=== PATIENT | male | born 1955 | race Caucasian/White ===

== ENCOUNTER 2018-07-15 09:24 | Day surgery (SDC) | payer OTHER, MEDICARE ==
[~2018-07-15 09:24] MED LIST: ACETAMINOPHEN 1,000 MG/100 ML BTL IV ONE
[2018-07-15] MEDS ORDERED: ALBUTEROL SULFATE (0.083%) 2.5 MG/3 ML NEB INH ONE ×2 (09:25→10:23)
[2018-07-15] MEDS ORDERED: SEVOFLURANE 250 ML INH ONE (09:25)
[2018-07-15] MEDS ORDERED: FENTANYL PF 100MCG/2ML VIAL IV ONE (09:25)
[2018-07-15] MEDS ORDERED: PROPOFOL 10 MG/ML VIAL IV ONE (09:25)
[2018-07-15] MEDS ORDERED: MIDAZOLAM HCL 2MG/2ML VIAL IV ONE (09:25)
[2018-07-15] MEDS ORDERED: ONDANSETRON 4 MG ODT TABLET SL ONE (09:25)
--- NOTE | 2018-07-16 08:41 | Operative Note ---
DATE OF SURGERY: 07/15/2018 Surgeon: tAif Munoz DO PREOPERATIVE DIAGNOSES: 1. Dupuytren's contracture of the right palm. 2. Dupuytren's contracture of the right little finger. OPERATION: Fasciotomy of the right palm and right little finger using 3.5 loop magnification. DESCRIPTION OF PROCEDURE: This 63-year-old male was taken to the operating room and placed in the supine position on the operating room table where general anesthesia was induced. The right upper extremity was elevated. It was prepped with Hibiclens and draped in the usual sterile fashion. It was exsanguinated and the tourniquet inflated to 250 mmHg. The patient had significant contracture of the right little finger and a zigzag type incision was carried out from approximately the level of the web space of the thumb which is where the cord began and extended this down across the metacarpophalangeal and PIP joint to the flexor crease of the DIP joint. The cord was easily identified and then carefully protecting the neurovascular structures, this was dissected free from the subcutaneous tissue, and the wound was copiously irrigated with lactated Ringer's solution. Hemostasis was obtained with the electrocautery. We were able to get the metacarpophalangeal and the PIP joint completely straight. Once this had been accomplished and the wound closed with 3-0 Vicryl, a plaster splint was applied with the metacarpophalangeal and the PIP joint in extension. The splint extended from the tips of the ring and little finger to the distal third of the forearm. The patient was then awakened and taken to the recovery room in satisfactory condition. GROSS PATHOLOGY: This patient demonstrated extensive contracture with jermaine cord formation in the palm extending across the metacarpophalangeal causing severe contracture of that joint. Once we were able to open this up, marked improvement in the fact that we got the metacarpophalangeal joint and the PIP joint fully straight. The hemostasis was obtained with the electrocautery during the course of the procedure. CC: NEAL JACKMAN MD, FACP [facility]
== END 2018-07-15 12:50 | disposition home or self-care (01) ==
LOC: SUR 09:24
PROVIDERS: ATTEND Orthopaedic Surgery
DX: M72.0 Palmar fascial fibromatosis [Dupuytren] (principal); I10 Essential (primary) hypertension; J44.9 Chronic obstructive pulmonary disease, unspecified; E11.9 Type 2 diabetes mellitus without complications; Z79.4 Long term (current) use of insulin; E78.00 Pure hypercholesterolemia, unspecified; G62.9 Polyneuropathy, unspecified; F17.210 Nicotine dependence, cigarettes, uncomplicated
CPT/HCPCS: 26045; 01810; 36416; 82948; 94640; J3010; J7613

== ENCOUNTER 2018-09-04 15:20 | Emergency (ER) | payer OTHER, MEDICARE ==
--- NOTE | 2018-09-04 16:13 | Emergency Department Record ---
History of Present Illness - General Chief Complaint: Chest Pain Stated Complaint: L CHEST,SIDE TO BACK PAIN Time Seen by Provider: 09/04/18 15:26 Source: Patient Mode of Arrival: Ambulatory Limitations: No limitations - History of Present Illness Initial Comments: pt states he is having ap in his luq that wraps around to his flank for 2 wks. he states it initially was briefly in the chest and then moved down to the abdomen. he states it feels like he has a ball in his stomach. the pain is constant but waxes and wanes in intensity Onset/Timin -: Days(s) Pain Location: Other Severity scale (1-10): 8 Quality: Sharp, Other Consistency: Intermittent Improves With: Nothing Worsens With: Exertion, Other - Related Data Home Medications Medication Instructions Recorded Confirmed Last Taken Fluticasone Propionate [Flovent 2 puff INH BID 09/04/18 09/04/18 09/04/18 Hfa] Pregabalin [Lyrica] 300 mg PO BID 09/04/18 09/04/18 09/04/18 Varenicline Tartrate [Chantix] 1 tab PO ASDIR 09/04/18 09/04/18 09/04/18 Allergies Allergy/AdvReac Type Severity Reaction Status Date / Time No Known Drug Intolerances Allergy PT UNSURE Verified 09/04/18 15:27 OF REACTION Travel Screening - Travel/Exposure Within Last 30 Days Have you traveled within the last 30 days?: No - Travel/Exposure Within Last Year Have you traveled outside the [place] in the last year?: No - Additonal Travel Details Have you been exposed to anyone with a communicable illness?: No - Travel Symptoms Symptom Screening: None Review of Systems Reviewed: No additional complaints except as noted below Constitutional: Reports: As per HPI. Denies: Chills, Fever, Malaise, Night sweats, Weakness, Weight change Eyes: Reports: As per HPI. Denies: Eye discharge, Eye pain, Photophobia, Vision change ENT: Reports: As per HPI. Denies: Congestion, Dental pain, Ear pain, Epistaxis, Hearing loss, Throat pain Respiratory: Reports: As per HPI. Denies: Cough, Dyspnea, Hemoptysis, Stridor, Wheezes Cardiovascular: Reports: As per HPI. Denies: Arrhythmia, Chest pain, Dyspnea on exertion, Edema, Murmurs, Orthopnea, Palpitations, Paroxysmal nocturnal dyspnea, Rheumatic Fever, Syncope Endocrine: Reports: As per HPI. Denies: Fatigue, Heat or cold intolerance, Polydipsia, Polyuria Gastrointestinal: Reports: As per HPI, Abdominal pain. Denies: Constipation, Diarrhea, Hematemesis, Hematochezia, Melena, Nausea, Vomiting Genitourinary: Reports: As per HPI. Denies: Dysuria, Frequency, Hematuria, Incontinence, Retention, Testicular pain, Testicular mass, Urgency Musculoskeletal: Reports: As per HPI. Denies: Arthralgia, Back pain, Gout, Join t swelling, Myalgia, Neck pain Skin: Reports: As per HPI. Denies: Bruising, Change in color, Change in hair/nails, Lesions, Pruritus, Rash Neurological: Reports: As per HPI. Denies: Abnormal gait, Confusion, Headache, Numbness, Paresthesias, Seizure, Tingling, Tremors, Vertigo, Weakness Psychiatric: Reports: As per HPI. Denies: Anxiety, Auditory hallucinations, Depression, Homicidal thoughts, Suicidal thoughts, Visual hallucinations Hematological/Lymphatic: Reports: As per HPI. Denies: Anemia, Blood Clots, Easy bleeding, Easy bruising, Swollen glands Past Medical History - SOCIAL HISTORY Smoking Status: Current every day smoker Alcohol Use: None Drug Use: None - RESPIRATORY Hx Respiratory Disorders: Yes Hx Bronchitis: Yes (NOTHING RECENT) Hx COPD: Yes (FAIR CONTROL WITH INHALER) Hx Dyspnea: Yes Comment:: PT HAS CHRONIC COUGH - CARDIOVASCULAR Hx Cardio Disorders: Yes Hx Hypertension: Yes (ON MEDS WITH GOOD CONTROL) - NEURO Hx Neuro Disorders: Yes Hx Neuropathy: Yes (BILAT FEET AND HANDS) - GI Hx GI Disorders: No - Hx Genitourinary Disorders: No - ENDOCRINE Hx Endocrine Disorders: Yes Hx Diabetes: Yes (DX'D MANY YEARS AGO) - MUSCULOSKELETAL Hx Musculoskeletal Disorders: Yes - PSYCH Hx Psych Problems: No - HEMATOLOGY/ONCOLOGY Hx Hematology/Oncology Disorders: No Family Medical History Any Significant Family History?: Yes Hx Diabetes: Mother Physical Exam - General General Appearance: Alert, Oriented x3, Cooperative, Mild distress - Head Head exam: Normal inspection - Eye Eye exam: Normal appearance, PERRL, EOMI Pupils: Normal accommodation - ENT ENT exam: Normal exam, Mucous membranes moist, Normal external ear exam, Normal orophraynx Ear exam: Normal external inspection. negative: External canal tenderness Nasal Exam: Normal inspection. negative: Discharge, Sinus tenderness Mouth exam: Normal external inspection, Tongue normal Teeth exam: Normal inspection. negative: Dental caries Throat exam: Normal inspection. negative: Tonsillar erythema, Tonsillar exudate - Neck Neck exam: Normal inspection, Full ROM. negative: Tenderness - Respiratory Respiratory exam: Normal lung sounds bilaterally. negative: Respiratory distress - Cardiovascular Cardiovascular Exam: Regular rate, Normal rhythm, Normal heart sounds - GI/Abdominal GI/Abdominal exam: Soft, Normal bowel sounds. negative: Tenderness - Rectal Rectal exam: Deferred - exam: Deferred - Extremities Extremities exam: Normal inspection, Full ROM, Normal capillary refill. negative: Tenderness - Back Back exam: Reports: Normal inspection, Full ROM. Denies: Muscle spasm, Rash noted, Tenderness - Neurological Neurological exam: Alert, CN II-XII intact, Normal gait, Oriented X3 - Psychiatric Psychiatric exam: Normal affect, Normal mood - Skin Skin exam: Dry, Intact, Normal color, Warm Course Vital Signs 09/04/18 15:41 Temperature 97.9 F Pulse Rate 81 Respiratory 20 Rate Blood Pressure 132/84 Pulse Ox 98 - Reevaluation(s) Reevaluation #1: 09/04/18 18:56 pt is feeling better. pt has never had a colonoscopy Medical Decision Making - Lab Data Result diagrams: 09/04/18 15:55 09/04/18 15:55 Disposition Disposition: Discharge Clinical Impression: Abdominal pain Qualifiers: Abdominal location: left upper quadrant Qualified Code(s): R10.12 - Left upper quadrant pain Disposition: Home, Self-Care Condition: (1) Good Instructions: Abdominal Pain (ED) Additional Instructions: follow up with dr tee and with GI doctor this week. return sooner if worse. Referrals: FLORENCE CHATTERJEE [DOCTOR OF OSTEOPATH] - [facility] [Provider Group] Forms: Patient Portal Access Quality - Quality Measures Quality Measures: N/A - Blood Pressure Screening Does Patient Have Any of the Following: No Blood Pressure Classification: Pre-Hypertensive BP Reading Systolic Measurement: 132 Diastolic Measurement: 84 Screening for High Blood Pressure: < Pre-Hypertensive BP, F/U Documented > [[id number]] Pre-Hypertensive Follow-up Interventions: Follow-up with rescreen every year.
[2018-09-04 16:19] LABS: ABSOLUTE NEUTROPHIL COUNT 4.68; HEMATOCRIT 43.8 % (42.0-52.0); HEMOGLOBIN 14.5 gm/dl (14.0-18.0); MEAN CORPUSCULAR HEMOGLOBIN 31.1 pg (27-33); MEAN CORPUSCULAR HGB CONC 33.1 g/dl (32-36); MEAN PLATELET VOLUME 10.1 fl (7.4-10.4); PLATELET COUNT 284 K/uL (130-400); RED BLOOD COUNT 4.66 M/uL (4.40-5.70); RED CELL DISTRIBUTION WIDTH 13.7 % (11.5-14.5); WHITE BLOOD COUNT W/O DIFF 9.2 K/uL (4.2-12.2)
[2018-09-04 16:35] LABS: ALBUMIN 4.5 g/dL (4.0-5.0); CREATININE 1.3 mg/dL (0.7-1.2)
[2018-09-04 16:35] LABS: LACTIC ACID 3.8 mmol/L (0.5-2.2)
[2018-09-04 16:36] LABS: ALB/GLOB RATIO 1.5 (1.1-1.8); BILIRUBIN,TOTAL 0.5 mg/dL (0.2-1.0); TOTAL PROTEIN 7.6 g/dL (6.6-8.7)
[2018-09-04 16:40] LABS: NTpro B-NATRIURETIC PEPTIDE 98.55 pg/mL (<125)
[2018-09-04 18:35] LABS: URINE APPEARANCE CLEAR; URINE BILIRUBIN NEGATIVE (NEGATIVE); URINE BLOOD TRACE-I (NEGATIVE); URINE COLOR YELLOW; URINE GLUCOSE (UA) NEGATIVE (NEGATIVE); URINE KETONE NEGATIVE (NEGATIVE); URINE LEUKOCYTE ESTERASE NEGATIVE (NEGATIVE); URINE NITRITE NEGATIVE (NEGATIVE); URINE PROTEIN NEGATIVE (NEGATIVE); URINE UROBILINOGEN 0.2 E.U./dL (0.20 - 1.00)
[2018-09-04 18:44] LABS: URINE EPITHELIAL CELLS 0 - 2 (FEW); URINE RBC 0 - 2 (NONE SEEN); URINE SPERM FEW; URINE WBC 0 - 2 (0-2/hpf)
--- NOTE | 2018-09-05 13:28 | CT SCAN REPORT ---
DATE: 09/04/2018. EXAM: CT OF THE ABDOMEN AND PELVIS WITH CONTRAST. COMPARISON: None. HISTORY: LEFT-SIDED ABDOMINAL PAIN. TECHNIQUE: Sequential axial images were obtained from the diaphragms through the ischiorectal fossa after intravenous and oral administration of 100 mL of Omnipaque 300 contrast material. Sagittal and coronal reformatted images were performed. FINDINGS: The visualized lung bases are clear. The liver appears homogeneous. No gallstones or ductal dilation. The pancreas and spleen appear normal. The adrenal glands and kidneys appear normal. The small bowel appears normal. The appendix is visualized and appears normal. The colon appears normal. The urinary bladder appears normal. The osseus structures are normal. IMPRESSION: NO ACUTE ABDOMINAL OR PELVIC DISEASE PROCESS. Job Number: [id number] [facility]
== END 2018-09-04 19:06 | disposition home or self-care (01) ==
LOC: ER 15:20
DX: R10.12 Left upper quadrant pain (principal); R07.89 Other chest pain; J44.9 Chronic obstructive pulmonary disease, unspecified; E11.9 Type 2 diabetes mellitus without complications; I10 Essential (primary) hypertension; F17.210 Nicotine dependence, cigarettes, uncomplicated
CPT/HCPCS: 99284 ×2; 83605; 83690; 80053; 81001; 84484; 85027; 83880; 74177; 93005; 93010; Q9967

== ENCOUNTER 2018-10-21 13:32 | Day surgery (SDC) | payer OTHER, MEDICARE ==
[2018-10-21] MEDS ORDERED: PROPOFOL 10 MG/ML VIAL IV ONE (13:33)
[2018-10-21] MEDS ORDERED: LIDOCAINE 2% MDV (20MG/ML) 20ML VIAL IV ONE (13:33)
--- NOTE | 2018-10-22 09:50 | Operative Note ---
DATE OF SURGERY: 10/21/2018 OPERATION: COLONOSCOPY with cold snare polypectomy. PREOPERATIVE DIAGNOSIS: Left-sided abdominal pain. POSTOPERATIVE DIAGNOSIS: Descending colon polyp. PREPARATION QUALITY: Good to excellent. ESTIMATED BLOOD LOSS: Minimum. SPECIMENS: Left colon polyp. COMPLICATIONS: None apparent. PROCEDURE: After informed consent was obtained from the patient, he was placed in the left lateral decubitus position in the endoscopy suite, sedated and monitored by the department of anesthesia. Digital rectal examination was unremarkable. A well-lubricated [id number] colonoscope was inserted into the rectum and advanced to the cecum. Preparation quality was good to excellent. The cecum, cecal bulb, ascending colon, and transverse colon were unremarkable. In the proximal descending colon there was noted to be a 5-6 mm sessile polyp removed with a cold snare. Minimal bleeding was noted. The polyp was retrieved without incident. The remainder of the descending colon, sigmoid colon, and rectum were unrevealing. Forward and J-turn views of the rectum and anorectum were unremarkable. The endoscope was straightened, the rectal ampulla deflated, and the endoscope was removed. RECOMMENDATIONS: The patient should resume his medications and diet. He will require repeat colonoscopy in 3-5 years pending tissue histology. As always, thank you for allowing me to participate in the healthcare of your patients. KAREEM
== END 2018-10-21 14:55 | disposition home or self-care (01) ==
LOC: HOP 13:32
PROVIDERS: ATTEND Internal Medicine Gastroenterology
DX: R10.9 Unspecified abdominal pain (principal); D12.4 Benign neoplasm of descending colon; E11.9 Type 2 diabetes mellitus without complications; I10 Essential (primary) hypertension; E78.00 Pure hypercholesterolemia, unspecified; J44.9 Chronic obstructive pulmonary disease, unspecified; G62.9 Polyneuropathy, unspecified